=== PATIENT | female | born 1960 | race Caucasian/White ===

== ENCOUNTER 2018-10-21 16:36 | Emergency (ER) | payer BC ==
[2018-10-21] MEDS ORDERED: Sodium Chloride 0.9% 10 ML Syringe FLUSH PRN ×2 (16:53→17:08)
--- NOTE | 2018-10-21 16:54 | EDM.PDOC ---
ED HPI GENERAL MEDICAL PROBLEM - General Chief Complaint: Chest Pain Stated Complaint: Epigastric Pain; Chest Pain; Back Pain Time Seen by Provider: 10/21/18 16:51 Source of Information: Reports: Patient, RN, RN Notes Reviewed History Limitations: Reports: No Limitations - History of Present Illness INITIAL COMMENTS - FREE TEXT/NARRATIVE: Patient presents the emergency room complaining of epigastric pain that started 2 days ago. The patient states that the epigastric pain feels like a tightness. The patient also has nausea but has not had any vomiting. No diarrhea. The patient states earlier today she started feeling a chest pressure above the epigastric area. The patient states that the epigastric pain shoots between her shoulder blades. The patient has not had any diaphoresis or dizziness. The patient does not have any shortness of breath or cough. The patient denies any problems with bowel movements. The patient has not had any UTI symptoms. No recent falls. The patient states that the epigastric pain is colicky in nature. The patient did take her aspirin and Plavix this morning as well as her Lopressor. Onset Date: 10/19/18 Duration: Colic Location: Reports: Abdomen (Epigastric) Quality: Reports: Pressure (tight) Severity: Mild Improves with: Reports: Rest Worsens with: Reports: None Context: Denies: Activity, Sick Contact, Trauma Associated Symptoms: Reports: Nausea/Vomiting Treatments LACE ROLLER: Reports: Other (see below) (None) Epigastric Pain Score (Numeric/FACES): 3 - Related Data Allergies Allergy/AdvReac Type Severity Reaction Status Date / Time No Known Allergies Allergy Verified 10/21/18 16:58 Home Meds: Home Meds Omeprazole Magnesium [Prilosec Otc] 20 mg PO DAILY PRN 08/30/17 [History] Aspirin [Halfprin] 81 mg PO BRK 09/26/17 [History] Metoprolol Succinate [Toprol XL] 12.5 mg PO DAILY 09/26/17 [History] Nitroglycerin [Nitrostat] 0.4 mg SL Q5M PRN 09/26/17 [History] Rosuvastatin Calcium [Crestor] 20 mg PO BEDTIME 09/26/17 [History] Ticagrelor [Brilinta] 90 mg PO BID 09/26/17 [History] Past Medical History Gastrointestinal History: Reports: PUD Neurological History: Reports: CVA ED ROS GENERAL - Review of Systems Review Of Systems: See Below Constitutional: Denies: Fever, Chills, Weakness Respiratory: Denies: Shortness of Breath, Cough Cardiovascular: Reports: Chest Pain. Denies: Blood Pressure Problem, Lightheadedness, Palpitations GI/Abdominal: Reports: Abdominal Pain, Nausea. Denies: Diarrhea, Vomiting Musculoskeletal: Reports: Back Pain (between shoulder blades) Skin: Reports: No Symptoms Neurological: Reports: No Symptoms ED EXAM, GENERAL - Physical Exam Exam: See Below Exam Limited By: No Limitations General Appearance: Alert, No Apparent Distress Respiratory/Chest: No Respiratory Distress, Lungs Clear, Decreased Breath Sounds Cardiovascular: Normal Peripheral Pulses, Regular Rate, Rhythm, No Edema Peripheral Pulses: 2+: Radial (L), Radial (R) GI/Abdominal: Normal Bowel Sounds, Soft, Tender (epigastric) Back Exam: Normal Inspection Neurological: Alert, Oriented Skin Exam: Warm, Dry, Intact, Normal Color EKG INTERPRETATION EKG Date: 10/21/18 Time: 19:47 Rhythm: NSR Rate (Beats/Min): 93 Wilson: Normal P-Wave: Present QRS: Normal ST-T: Normal QT: Normal SC/PQ Interval: 0.18 Comparison: No Change EKG Interpretation Comments: 1. Normal Sinus Rhythm Course - Vital Signs Last Recorded V/S: Last Vital Signs Temp 37.2 C 10/21/18 16:45 Pulse 90 10/21/18 16:45 Resp 18 10/21/18 16:45 BP 156/76 H 10/21/18 16:45 Pulse Ox 95 10/21/18 16:45 - Orders/Labs/Meds Orders: Active Orders 24 hr Category Date Time Status EKG 12 Lead [EKG Documentation Completion] [RC] STAT Care 10/21/18 16:52 Active Sodium Chloride 0.9% [Saline Flush] Med 10/21/18 16:53 Active 10 ml FLUSH ASDIRECTED PRN Peripheral IV Insertion Adult [OM.PC] Routine Oth 10/21/18 16:53 Ordered Medication Orders Sodium Chloride (Saline Flush) 10 ml FLUSH ASDIRECTED PRN PRN Reason: Keep Vein Open Last Admin: 10/21/18 17:31 Dose: 10 ml Labs: Laboratory Tests 10/21/18 10/21/18 10/21/18 Range/Units 17:10 17:10 17:20 WBC 6.6 (4.0-10.0) x10^3/uL RBC 5.47 (4.00-5.50) x10^6/uL Hgb 15.9 (12.0-16.0) g/dL Hct 48.7 H (33.0-47.0) % MCV 89.0 D (78.0-93.0) fL MCH 29.1 (26.0-32.0) pg MCHC 32.6 (32.0-36.0) g/dL RDW Coeff of Kristian 13.8 (10.0-15.0) % Plt Count 179 D (130-400) x10^3/uL Neut % (Auto) 75.4 (50.0-80.0) % Lymph % (Auto) 15.9 L (25.0-50.0) % [place] % (Auto) 7.6 (2.0-11.0) % Eos % (Auto) 0.9 (0.0-4.0) % Baso % (Auto) 0.2 (0.2-1.2) % Sodium 140 (136-145) mmol/L Potassium 3.6 (3.5-5.1) mmol/L Chloride 101 (98-107) mmol/L Carbon Dioxide 29 (21-32) mmol/L Anion Gap 13.6 (10-20) mmol/L BUN 7 (7-18) mg/dL Creatinine 0.7 (0.55-1.02) mg/dL Est Cr Clr Drug Dosing TNP Estimated GFR (MDRD) > 60 Glucose 119 H (74-106) mg/dL Calcium 9.1 (8.5-10.1) mg/dL Corrected Calcium 9.58 (8.5-10.1) mg/dL Total Bilirubin 0.5 (0.2-1.0) mg/dL AST 20 (15-37) U/L ALT 22 (14-59) U/L Alkaline Phosphatase 110 (46-116) U/L Creatine Kinase 45 (26-192) U/L POC Troponin I 0.01 (0.00-0.08) ng/mL Total Protein 6.9 (6.4-8.2) g/dL Albumin 3.4 (3.4-5.0) g/dL Globulin 3.5 Albumin/Globulin Ratio 0.97 Amylase 43 (25-115) U/L Lipase 123 (73-393) U/L Meds: Medications Generic Name Dose Route Start Last Admin Trade Name Freq PRN Reason Stop Dose Admin Sodium Chloride 10 ml 10/21/18 16:53 10/21/18 17:31 Saline Flush FLUSH 10 ml ASDIRECTED PRN Administration Keep Vein Open Discontinued Medications Generic Name Dose Route Start Last Admin Trade Name Freq PRN Reason Stop Dose Admin Al Hydroxide/Mg Hydroxide 30 ml 10/21/18 17:51 10/21/18 18:00 Gi Cocktail PO 10/21/18 17:52 30 ml ONETIME ONE Administration Famotidine 20 mg 10/21/18 17:09 10/21/18 17:28 Pepcid IVPUSH 10/21/18 17:10 20 mg ONETIME ONE Administration Metoclopramide HCl 10 mg 10/21/18 17:09 10/21/18 17:26 Reglan IVPUSH 10/21/18 17:10 10 mg ONETIME ONE Administration Ondansetron HCl 4 mg 10/21/18 17:51 10/21/18 18:00 Zofran IVPUSH 10/21/18 17:52 4 mg ONETIME ONE Administration Pantoprazole Sodium 40 mg 10/21/18 17:09 10/21/18 17:31 Protonix Iv IVPUSH 10/21/18 17:10 40 mg ONETIME ONE Administration Sodium Chloride 10 ml 10/21/18 17:08 Saline Flush FLUSH ASDIRECTED PRN Keep Vein Open - Radiology Interpretation Free Text/Narrative:: CXR: Mild subsegmental atelectasis or scarring the left lung base See scanned report in EMR for details - Re-Assessments/Exams Free Text/Narrative Re-Assessment/Exam: 10/21/18 18:13 Patient states her symptoms are feeling much better after the GI Cocktail and Zofran. Departure - Departure Time of Disposition: 18:14 Disposition: Home, Self-Care 01 Reason for Transfer *Q: Other Condition: Good Clinical Impression: Gastritis Qualifiers: Gastritis type: unspecified gastritis Chronicity: acute Gastritis bleeding: without bleeding Qualified Code(s): K29.00 - Acute gastritis without bleeding Instructions: Gastritis, Adult Referrals: Mireya Dalton PA-C [Primary Care Provider] - Forms: ED Department Discharge Additional Instructions: 1. Stay well hydrated and rest 2. Eat a bland diet for the next couple of days to rest to stomach 3. Continue with same home medications 4. See your PCP this week for a recheck 5. Call us with any questions or concerns - Problem List Review Problem List Initiated/Reviewed/Updated: Yes - My Orders Last 24 Hours: My Active Orders 10/21/18 16:52 EKG 12 Lead [EKG Documentation Completion] [RC] STAT 10/21/18 16:53 Sodium Chloride 0.9% [Saline Flush] 10 ml FLUSH ASDIRECTED PRN Peripheral IV Insertion Adult [OM.PC] Routine - Assessment/Plan Last 24 Hours: My Active Orders 10/21/18 16:52 EKG 12 Lead [EKG Documentation Completion] [RC] STAT 10/21/18 16:53 Sodium Chloride 0.9% [Saline Flush] 10 ml FLUSH ASDIRECTED PRN Peripheral IV Insertion Adult [OM.PC] Routine Assessment:: Gastritis Plan: Assessment, labs, xray, EKG reviewed and discussed with patient. No definitive cardia etiology found. Symptoms likely from PUD/GERD. Patient responded well to the PPI an H2. Recommend eating a bland diet for the next few days. Patient may want to follow up with PCP as symptoms warrant.
[2018-10-21 16:56] VITALS: BP 156/76
[2018-10-21] MEDS ORDERED: Metoclopramide 10 MG/2 ML SDV IVPUSH ONE (17:09)
[2018-10-21] MEDS ORDERED: Famotidine 20 MG/2 ML SDV IVPUSH ONE (17:09)
[2018-10-21] MEDS ORDERED: Pantoprazole 40 MG Vial IVPUSH ONE (17:09)
--- NOTE | 2018-10-21 17:33 | CR ---
[id number] RAD/RAD Chest PA And Lateral EXAM: FRONTAL AND LATERAL CHEST INDICATION: CHEST PAIN. COMPARISON: None. DISCUSSION: Mild subsegmental atelectasis or scarring in the left lung base. Mild hyperinflation suggesting underlying chronic obstructive pulmonary disease. No definite infiltrates. Normal heart size. IMPRESSION: 1. Mild subsegmental atelectasis or scarring the left lung base. Dae Roque MD 10/21/18 1733 Thank you for allowing us to participate in the care of your patient.
[2018-10-21 17:36] LABS: CHLORIDE,CL 101 mmol/L (98-107); SODIUM,NA 140 mmol/L (136-145)
[2018-10-21 17:45] LABS: ANION GAP 13.6 mmol/L (10-20)
[2018-10-21] MEDS ORDERED: Ondansetron 4 MG/2 ML SDV IVPUSH ONE (17:51)
[2018-10-21] MEDS ORDERED: GI Cocktail Oral Solution 30 ML PO ONE (17:51)
== END 2018-10-21 18:23 | disposition home or self-care (01) ==
LOC: VM.ED 16:36
DX: K29.00 Acute gastritis without bleeding (principal); Z79.899 Other long term (current) drug therapy
CPT/HCPCS: 36415; 71046; 80053; 82150; 82550; 83690; 84484; 85025; 93005; 96374; 96375; 99285; A9270; C9113; J2405; J2765; J3490

== ENCOUNTER 2022-10-30 13:25 | Emergency (ER) | payer BC ==
[2022-10-30] MEDS ORDERED: GI Cocktail Oral Solution 30 ML PO ONE (13:44)
[2022-10-30 14:19] LABS: CHLORIDE,CL 101 mmol/L (98-107); SODIUM,NA 138 mmol/L (136-145)
[2022-10-30 14:27] LABS: ANION GAP 11.9 mmol/L (5-15); ESTIMATED GFR 83 mL/min (>=60)
[2022-10-30 14:49] VITALS: BP 113/64; PULSE 69
== END 2022-10-30 14:41 | disposition home or self-care (01) ==
LOC: VM.ED 13:25
DX: R10.13 Epigastric pain (principal); I25.10 Atherosclerotic heart disease of native coronary artery without angina pectoris; E78.00 Pure hypercholesterolemia, unspecified; I25.2 Old myocardial infarction; F17.210 Nicotine dependence, cigarettes, uncomplicated; Z86.73 Personal history of transient ischemic attack (TIA), and cerebral infarction without residual deficits; Z79.899 Other long term (current) drug therapy; Z79.82 Long term (current) use of aspirin
CPT/HCPCS: 36415; 71045; 80053; 82150; 83690; 83735; 84100; 84484; 85025; 86140; 93005; 93010; 99284; 99284-25; A9270-GY

== ENCOUNTER 2023-03-04 12:57 | Emergency (ER) | payer BC ==
[2023-03-04 13:57] LABS: BASOPHILS PERCENT AUTO 0.2 % (0.2-1.2); EOSINOPHILS ABSOLUTE AUTO 0.1 x10^3/uL (0.0-0.5); EOSINOPHILS PERCENT AUTO 0.8 % (0.0-4.0); HEMATOCRIT 50.6 % (33.0-47.0); IMMATURE GRAN ABSOLUTE AUTO 0.01 x10^3/uL (0.00-0.07); LYMPHOCYTES ABSOLUTE AUTO 1.6 x10^3/uL (1.0-4.8); LYMPHOCYTES PERCENT AUTO 16.6 % (25.0-50.0); MEAN CORPUSCULAR HEMOGLOBIN 30.9 pg (26.0-32.0); MEAN CORPUSCULAR HGB CONC 33.6 g/dL (32.0-36.0); MEAN CORPUSCULAR VOLUME 91.8 fL (78.0-93.0); MONOCYTES ABSOLUTE AUTO 0.6 x10^3/uL (0.0-0.8); MONOCYTES PERCENT AUTO 5.8 % (2.0-11.0); NEUTROPHILS ABSOLUTE AUTO 7.2 x10^3/uL (1.8-7.7); NEUTROPHILS PERCENT AUTO 76.5 % (50.0-80.0); PLATELET COUNT,PLT 167 x10^3/uL (130-400); RED BLOOD CELL COUNT 5.51 x10^6/uL (4.00-5.50); WHITE BLOOD CELL COUNT,WBC 9.4 x10^3/uL (4.0-10.0)
[2023-03-04 14:05] VITALS: BP 136/66; PULSE 79
[2023-03-04 14:14] LABS: APPEARANCE,URINE CLEAR (CLEAR); BILIRUBIN,URINE NEGATIVE (NEGATIVE); COLOR,URINE YELLOW (YELLOW); GLUCOSE,URINE NEGATIVE (NEGATIVE); KETONES,URINE NEGATIVE (NEGATIVE); LEUKOCYTE ESTERASE,URINE NEGATIVE (NEGATIVE); NITRITE,URINE NEGATIVE (NEGATIVE); OCCULT BLOOD,URINE TRACE-LYSED (NEGATIVE); PROTEIN,URINE NEGATIVE (NEGATIVE)
[2023-03-04 14:15] LABS: ALBUMIN 3.6 g/dL (3.4-5.0); BLOOD UREA NITROGEN,BUN 4 mg/dL (7-18); CALCIUM 8.7 mg/dL (8.5-10.1); CARBON DIOXIDE,CO2 31 mmol/L (21-32); CHLORIDE,CL 101 mmol/L (98-107); CREATININE 0.8 mg/dL (0.55-1.02); EST CRCL DRUG DOSING (CG) 55.02 mL/min; GLUCOSE RANDOM 123 mg/dL (70-99); POTASSIUM,K 3.6 mmol/L (3.5-5.1); PROTEIN TOTAL,TP 6.8 g/dL (6.4-8.2); SODIUM,NA 141 mmol/L (136-145)
[2023-03-04 14:16] LABS: A/G RATIO 1.13; ALANINE AMINOTRANSFERASE,ALT 20 U/L (14-59); ALKALINE PHOSPHATASE 96 U/L (46-116); ANION GAP 12.6 mmol/L (5-15); ASPARTATE AMNIOTRANSFERASE,AST 21 U/L (15-37); BILIRUBIN TOTAL 0.4 mg/dL (0.2-1.0); C-REACTIVE PROTEIN < 0.2 mg/dL (<=0.9); CREATINE KINASE,CK 61 U/L (26-192); ESTIMATED GFR 83 mL/min (>=60); LACTATE DEHYDROGENASE,LDH 143 U/L (81-234)
[2023-03-04 14:20] LABS: BACTERIA,URINE RARE /HPF (NOT SEEN); MUCUS,URINE OCCASIONAL /LPF (NOT SEEN); RBC,URINE 0-5 /HPF (NOT SEEN); SQUAMOUS EPITHELIAL CELLS,UR FEW /HPF (NOT SEEN); WBC,URINE 0-5 /HPF (NOT SEEN)
[2023-03-04] MEDS ORDERED: Meclizine 25 MG Tab PO ONE (15:02)
== END 2023-03-04 15:10 | disposition home or self-care (01) ==
LOC: VM.ED 12:57
DX: R42 Dizziness and giddiness (principal); R00.2 Palpitations; E78.00 Pure hypercholesterolemia, unspecified; I25.2 Old myocardial infarction; Z72.0 Tobacco use; Z79.899 Other long term (current) drug therapy
CPT/HCPCS: 36415; 70450; 71046; 80053; 81001; 82550; 83615; 84484; 85025; 86140; 93005; 93010; 99284; A9270-GY

== ENCOUNTER 2024-01-23 01:30 | Emergency (ER) | payer BC ==
[2024-01-23] MEDS: Famotidine 20 MG/2 ML SDV IVPUSH ONE (01:59)
[2024-01-23 02:05] LABS: BASOPHILS PERCENT AUTO 0.1 % (0.2-1.2); EOSINOPHILS PERCENT AUTO 0.1 % (0.0-4.0); HEMATOCRIT 48.1 % (33.0-47.0); HEMOGLOBIN 16.1 g/dL (12.0-16.0); IMMATURE GRAN ABSOLUTE AUTO 0.03 x10^3/uL (0.00-0.07); LYMPHOCYTES PERCENT AUTO 14.4 % (25.0-50.0); MEAN CORPUSCULAR HEMOGLOBIN 31.4 pg (26.0-32.0); MEAN CORPUSCULAR HGB CONC 33.5 g/dL (32.0-36.0); MEAN CORPUSCULAR VOLUME 93.8 fL (78.0-93.0); MONOCYTES PERCENT AUTO 7.3 % (2.0-11.0); NEUTROPHILS ABSOLUTE AUTO 10.7 x10^3/uL (1.8-7.7); NEUTROPHILS PERCENT AUTO 77.9 % (50.0-80.0); PLATELET COUNT,PLT 243 x10^3/uL (130-400); RED BLOOD CELL COUNT 5.13 x10^6/uL (4.00-5.50); WHITE BLOOD CELL COUNT,WBC 13.8 x10^3/uL (4.0-10.0)
[2024-01-23 02:21] LABS: A/G RATIO 0.97; ALANINE AMINOTRANSFERASE,ALT 19 U/L (14-59); ALBUMIN 3.5 g/dL (3.4-5.0); ALKALINE PHOSPHATASE 87 U/L (46-116); ASPARTATE AMNIOTRANSFERASE,AST 45 U/L (15-37); BILIRUBIN TOTAL 0.6 mg/dL (0.2-1.0); BLOOD UREA NITROGEN,BUN 23 mg/dL (7-18); CARBON DIOXIDE,CO2 32 mmol/L (21-32); CHLORIDE,CL 101 mmol/L (98-107); CREATININE 0.8 mg/dL (0.55-1.02); GLUCOSE RANDOM 136 mg/dL (70-99); POTASSIUM,K 4.1 mmol/L (3.5-5.1); PROTEIN TOTAL,TP 7.1 g/dL (6.4-8.2); SODIUM,NA 141 mmol/L (136-145)
[2024-01-23 02:22] LABS: ANION GAP 12.1 mmol/L (5-15); ESTIMATED GFR 83 mL/min (>=60)
[2024-01-23] MEDS: Sodium Chloride 0.9% 1,000 ML IV SCH (03:48)
[2024-01-23 04:56] VITALS: BP 138/76; PULSE 84
== END 2024-01-23 04:40 | disposition short-term general hospital (02) ==
LOC: VM.ED 01:30
DX: K92.0 Hematemesis (principal); E78.00 Pure hypercholesterolemia, unspecified; I25.2 Old myocardial infarction; F17.210 Nicotine dependence, cigarettes, uncomplicated; Z79.899 Other long term (current) drug therapy; Z79.82 Long term (current) use of aspirin; Z95.5 Presence of coronary angioplasty implant and graft
CPT/HCPCS: 80053; 85025; 94760; 96361; 96374; 99283; 99285-25; J3490; J7030